=== PATIENT | male | born 1975 | race African-American/Black ===

== ENCOUNTER 2021-09-06 22:35 | Emergency (ER) | payer OTHER ==
[~2021-09-06] VITALS: Ht 172.7 cm; Wt 107.2 kg
[2021-09-06 23:01] VITALS: BP 158/112
== END 2021-09-07 03:41 | disposition left against medical advice (07) ==
LOC: ER 22:43
DX: M54.59 Other low back pain (principal); Z53.21 Procedure and treatment not carried out due to patient leaving prior to being seen by health care provider; V47.5XXA Car driver injured in collision with fixed or stationary object in traffic accident, initial encounter; Y93.I9 Activity, other involving external motion; Y92.89 Other specified places as the place of occurrence of the external cause; Y99.8 Other external cause status